=== PATIENT | male | born 2000 | race Hispanic/Latino ===

== ENCOUNTER 2018-03-28 19:36 | Emergency (ER) | payer BC ==
[2018-03-28 19:53] VITALS: BMI 27.4
[2018-03-28 20:05] VITALS: RESP 18; TEMP 98.8
[2018-03-28] MEDS ORDERED: Naproxen 550 mg Tab PO STA (20:44)
--- NOTE | 2018-03-28 20:59 | ED PDOC ---
Arrival/HPI - General Chief Complaint: Lower Extremity Problem/Injury Time Seen by Provider: 03/28/18 19:50 Historian: Patient - History of Present Illness Narrative History of Present Illness (Text): 03/28/18 20:59 17 yo M c/o pain to the R great toe after injuring his toe on a baby gate pto. Reports that he has some bleeding from the toenail but the nail is intact. Otherwise reports no numbness, no other joint pain, no other injury. Past Medical History - Infectious Disease Hx of Infectious Diseases: None - Psychiatric Hx Substance Use: No Family/Social History Family/Social History: No Known Family HX Smoking Status: Never Smoked Hx Alcohol Use: No Hx Substance Use: No Allergies/Home Meds Allergies/Adverse Reactions: Allergies No Known Allergies Allergy (Verified 03/28/18 20:27) Review of Systems - Review of Systems Constitutional: absent: Fatigue, Fevers Musculoskeletal: Arthralgias. absent: Back Pain, Neck Pain Skin: absent: Rash, Pruritis, Skin Lesions Physical Exam Vital Signs Temp Pulse Resp BP Pulse Ox 03/28/18 20:05 98.8 F 84 18 154/85 H 98 Temperature: Afebrile Blood Pressure: Hypertensive Pulse: Regular Respiratory Rate: Normal Appearance: Positive for: Well-Appearing, Non-Toxic, Other (Patient is anxious) Pain Distress: Mild Mental Status: Positive for: Alert and Oriented X 3 - Systems Exam Upper Extremity: Present: Normal Inspection. No: Edema Lower Extremity: Present: NORMAL PULSES, Normal ROM, Tenderness (+tenderness, edema to the R great toe with noted subungal hematoma, toenail is intact), Ne urovascularly Intact, Capillary Refill < 2 s, Other. No: Temperature Abnormalties Neurological: Present: GCS=15, CN II-XII Intact, Speech Normal, Motor Func Grossly Intact, Normal Sensory Function Skin: Present: Warm, Dry, Normal Color. No: Rashes Psychiatric: Present: Alert, Oriented x 3, Normal Insight, Normal Concentration Medical Decision Making ED Course and Treatment: 03/28/18 20:56 Plan : - XR R foot - Naprosyn PO - Xanax PO XR R foot : no fracture, no dislocation. XR results d/w the patient. PA will attempt to drain subungual hematoma. Prior to procedure "time out" was called in order to confirm the correct patient and procedure. Through aseptic technique, cautery was used by PA, very small amount of bloody drainage was produced by PA. Toe was cleaned. Clean dressing was applied. On reevaluation, patient reports improvement of symptoms. On exam, patient remains awake alert and oriented 3 in no acute distress. Advised to follow up with podiatry referral in 1-2 days without fail. Advised to take medication as prescribed, keep toe elevated. Return to the emergency room at any time for any new or worsening symptoms. Patient states he fully agrees with and understands discharge instructions. States that he agrees with the plan and disposition. Verbalized and repeated discharge instructions and plan. I have given the patient opportunity to ask any additional questions. 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 Disposition/Present on Arrival - Present on Arrival Any Indicators Present on Arrival: No History of DVT/PE: No History of Uncontrolled Diabetes: No Urinary Catheter: No History of Decub. Ulcer: No History Surgical Site Infection Following: None - Disposition Have Diagnosis and Disposition been Completed?: Yes Diagnosis: Contusion of toe of right foot, Subungual hematoma of toe Disposition: HOME/ ROUTINE Disposition Time: 23:00 Patient Plan: Discharge Condition: STABLE Discharge Instructions (ExitCare): Contusion (DC), Toe Injury Additional Instructions: Thank you for letting us take care of you today. You were treated for toe contusion, subungual hematoma. The emergency medical care you received today was directed at your acute symptoms. If you were prescribed any medication, please fill it and take as directed. It may take several days for your symptoms to resolve. Return to the Emergency Department if your symptoms worsen, do not improve, or if you have any other problems. Please contact your doctor in 2 days for re-evaluation and follow up / or call one of the physicians/clinics you have been referred to that are listed on the Patient Visit Information form that is included in your discharge packet. Bring any paperwork you were given at discharge with you along with any medications you are taking to your follow up visit. Our treatment cannot replace ongoing medical care by a primary care provider (PCP) outside of the emergency department. Thank you for allowing the [employer] team to be part of your care today. If you had an X-Ray : A Radiologist will review the ED reading if any change in treatment is needed we will contact you. Prescriptions: Naproxen 500 mg PO BID PRN #20 tablet PRN Reason: Pain, Moderate (4-7) Referrals: Janet Deng MD [Primary Care Provider] - Follow up with primary Spencer Oliva DPM [Staff Provider] - Follow up with primary Forms: [employer] (Sami)
[2018-03-29 00:47] VITALS: BP 135/75; PULSE 85; O2SAT 100
--- NOTE | 2018-03-29 09:41 | RAD ---
Date of service: 03/28/2018 PROCEDURE: Right Foot Radiographs. HISTORY: R great toe pain COMPARISON: None. FINDINGS: BONES: Normal. No fracture. JOINTS: Normal. SOFT TISSUES: Normal. OTHER FINDINGS: None. IMPRESSION: Normal right foot radiographs.
== END 2018-03-28 23:20 | disposition home or self-care (01) ==
LOC: ED 19:36
DX: S90.111A Contusion of right great toe without damage to nail, initial encounter (principal); W22.09XA Striking against other stationary object, initial encounter